=== PATIENT | male | born 1955 | race Caucasian/White ===

== ENCOUNTER 2024-12-16 20:26 | Observation (INO) | payer OTHER, SELFPAY ==
[2024-12-16 20:29] VITALS: BP 168/108; PULSE 106; RESP 16; TEMP 36.6; O2SAT 99; BMI 27.1
[2024-12-16 20:40] VITALS: BP 167/103; PULSE 101; RESP 19; O2SAT 97
[2024-12-16 21:30] LABS: Mucous, Urine 0 SEEN /hpf (<or=2+)
[2024-12-16 21:31] LABS: Color, Urine Straw (Yellow); Glucose, Dipstick Normal (Normal); Ketone-Dipstick Negative (Negative); Leukocyte Esterase-Dipstick 25 /ul (Negative); Nitrite-Dipstick Negative (Negative); Occult Blood-Urine 150 /ul (Negative); Protein-Dipstick 30 mg/dl (Negative); Specific Gravity, Urine 1.005 (1.002-1.030); Urine Bilirubin Dipstick Negative (Negative); Urine Clarity Clear (Clear); Urine Urobilinogen Normal (Normal); Urine pH 6.5 (5.0 - 8.0)
[2024-12-16 21:35] LABS: Absolute Lymphocyte Count 2.45 X10^3/uL (0.83-4.51); Absolute Neutrophil Count 9.3 X10^3/uL (2.0-7.7); Basophil# 0.05 X10^3/uL; Basophil% 0.4 % (0-1); Eosinophil# 0.44 X10^3/uL; Eosinophils% 3.2 % (0-5); Hematocrit 40.9 % (40-54); Hemoglobin 14.2 g/dL (13.0-16.5); Lymphocyte # 2.45 X10^3/ul (0.83-4.51); Lymphocyte % 17.6 % (19-41); Mean Corp Hgb Conc 34.7 g/dL (32-36); Mean Corpuscular Hgb 30.1 pg (27.0-32.0); Mean Corpuscular Volume 86.7 fL (80-94); Mean Platelet Vol. 8.3 fl (6.2-12.0); Monocyte# 1.63 X10^3/uL; Monocyte% 11.7 % (0-10); NRBC Flagged by Analyzer 0 % (0-5); Neutrophil # 9.28 X10^3/uL (2.7-7.7); Neutrophil % 66.7 % (47-70); POSITIVE DIFFERENTIAL YES; Platelet Count 464 K/mm3 (150-450); RBC Distribution Width CV 11.8 % (11.6-14.6); RBC Distribution Width SD 37.3 fl (35.1-43.9); Red Blood Count 4.72 M/mm3 (4.6-6.2); White Blood Count 13.9 K/mm3 (4.4-11.0)
[2024-12-16 21:45] LABS: Differential Indicated SCAN CRITERIA MET
[2024-12-16 22:14] LABS: ALB/GLOB Ratio 1.1 RATIO (0.9-2.4); AST(SGOT) 17 U/L (<=37); Alanine Aminotransfer ALT/SGPT 34 U/L (<=46); Albumin, Serum 3.8 g/dL (3.4-4.8); Alkaline Phosphatase 48 U/L (40-129); Anion Gap 13 (5-15); BUN 13 mg/dL (4-19); Calcium,Total 8.7 mg/dL (7.6-11.0); Carbon Dioxide 25.1 mmol/L (21.0-32.0); Chloride 99 mmol/L (98-108); Creatinine, Serum 0.74 mg/dL (0.70-1.20); EST Glomerular Filtration Rate 99 (>60); Estimated Creatinine Clearance 82.63 ml/min (50-250); Globulin 3.5 g/dL (2.2-4.2); Glucose 105 mg/dL (70-99); Lipase 25 U/L (13-75); Potassium 3.8 mmol/L (3.3-5.1); Protein, Total 7.2 g/dL (5.9-8.4); Sodium Level 137 mmol/L (133-145); Total Bilirubin 0.49 mg/dL (0.00-1.30)
--- NOTE | 2024-12-16 22:15 | CT_ITS ---
PROCEDURE: CT of the abdomen/pelvis with IV contrast. 12/16/2024 REASON FOR EXAM: UPPER ABDOMINAL PAIN TECHNIQUE: After the administration of 96 cc Isovue 370 IV contrast, contiguous axial CT images were obtained through the abdomen/pelvis. Sagittal and coronal reformats were created. One or more dose reduction techniques were used (e.g., Automated exposure control, adjustment of the mA and/or kV according to patient size, use of iterative reconstruction technique. RADIATION DOSE SUMMARY: DLP: 1143.60 mGycm COMPARISON: Abdominal ultrasound from the same day COMPARISON: Abdominal ultrasound from the same day FINDINGS: [id number] degenerative changes in the spine. Moderate degenerative changes in the hip joints. Heart is not enlarged. No sizable pericardial effusion. Mild wall thickening of the distal esophagus. Minimal dependent atelectasis in the lower lobes. Abdominal aorta normal in caliber. No large abdominal wall defect. There is a tiny fat containing umbilical hernia. Patchy wall thickening of the stomach may be due to lack of distention versus peristalsis. There are calcified gallstones near the neck. Pericholecystic inflammatory changes are present. No gross dilation of the biliary tree. Portal vein is patent. Diffuse low attenuation of the liver, without discrete parenchymal lesion. Probable small area of focal fatty sparing near the gallbladder fossa. The adrenal glands, spleen, and pancreas show no specific abnormality. The kidneys are symmetric in size and enhancement. No solid renal mass or obstructive uropathy. No abnormally dilated bowel segments or free intraperitoneal air. Scattered patchy wall thickening of the colon may be due to lack of distention versus peristalsis or chronic diverticular disease. Moderate stool in the colon. Normal appendix. No abdominal/pelvic adenopathy or ascites. There is asymmetric left moderate bladder wall thickening. There is some haziness in the central and left central aspect of the pelvis, extending to the perirectal fat. CT/Abdomen/Pelvis W IV Cont ONLY IMPRESSION: Calcified gallstones with gallbladder wall thickening and pericholecystic infla mmatory changes, concerning for acute cholecystitis. No gross dilation of the biliary tree. There is moderate asymmetric wall thickening of the left side of the urinary bl adder. There is some haziness in the central and left central pelvis, extending to the perirectal fat. This could be due to asy mmetric cystitis with bladder malignancy not excluded. Recommend further evaluation with cystoscopy. Diffuse fatty metamorphosis of the liver. Probable focal fatty sparing near th e gallbladder fossa. Tiny fat containing umbilical hernia. Mild wall thickening of the distal esophagus. This could be due to a tiny hiat al hernia or reflux. This could be better evaluated with upper endoscopy to exclude the possibility of distal esophageal malignancy. Normal appendix. Reading Location: [facility]
--- NOTE | 2024-12-16 22:15 | ED.VIS.GI ---
HPI HPI - GI History of Present Illness Chief Complaint: Abd Pain Informant: patient, spouse/S.O. and family Narrative Narrative: 68-year-old Roman Catholic male presenting to the emergency room with epigastric pain. Patient states that for the past several days he has been experiencing pain when he eats. Described as a burning in his upper abdomen lower chest. Does not radiate to his back. He notes that he has been constipated for the past few days has been taking medicine for that. He has been taking ivermectin intermittently for months because he believes that he has a parasite infection. states that he has been complaining that he is feeling heavy in his abdomen. No reported fevers or vomiting. He takes many different herbal medications. He does not want any surgery. He states that the only reason he is here is because his family is making him be here. PFSH PFSH Medical History no medical history Allergy/AdvReac Type Severity Reaction Status Date / Time No Known Allergies Allergy Verified 12/16/24 20:27 Social History Smoking Status: Never smoker ROS ROS ED Constitutional Constitutional ED: Denies chills or weight loss Eyes Eyes: Denies change in vision or diplopia ENT ENT ED: Denies ear pain, rhinorrhea or sore throat Cardiovascular Cardiovascular: Reports chest pain; Denies orthopnea, palpitations or racing heartbeat Respiratory/Chest Respiratory/Chest: Denies cough, dyspnea or orthopnea Gastrointestinal Gastrointestinal: Reports abdominal pain and constipation; Denies diarrhea, nausea or vomiting Genitourinary Genitourinary ED: Denies dysuria, hematuria or urinary frequency Musculoskeletal Musculoskeletal: Denies arthralgias or myalgias Integumentary Denies abscess or rash Neurologic Neurologic: Denies headache(s) or weakness Psychiatric Psychiatric: Denies anxiety, depression, suicidal ideation or suicidal thoughts Endocrine Endocrinology: Denies polydipsia, polyphagia or polyuria Allergic/Immunologic Allergic/Immunologic ED: Denies mouth swelling, tongue swelling or urticaria EXAM Physical Exam Const Vital Signs: 12/16/24 20:29 12/16/24 20:40 12/16/24 22:27 Temperature 97.9 F Temperature Source Temporal Pulse Rate 106 H 101 H 75 Respiratory Rate 16 19 H Blood Pressure 168/108 H 167/103 H 143/94 H Blood Pressure Mean 128 124 110 Pulse Ox 99 97 100 Oxygen Delivery Method Room Air Room Air Positive well nourished and well developed General Appearance ED: well developed and NAD HEENT Reports normocephalic, head/scalp atraumatic and moist mucous membranes Eyes PERRL and EOMs intact bilaterally Neck no lymphadenopathy, supple and no JVD Resp normal respiratory effort and clear to auscultation bilaterally Cardio regular rate, regular rhythm and no murmurs GI GI Narrative: Patient has involuntary guarding in the upper abdomen but he tells me it does not hurt. Inspection: Negative for abdominal distention Auscultation: normoactive bowel sounds Palpation: soft Back/Spine no CVA tenderness and normal ROM Extremity normal to inspection General Extremety ED: Negative for edema General Extremity: Negative for edema Neuro oriented x3 and CN's II-XII intact bilaterally Sensorium / Orientation: alert Motor Exam: strength 5/5 throughout Psych mental status grossly normal Mood & Affect: Negative for depressed or tearful Skin no rashes or lesions noted and no wounds MDM MDM MDM Narrative Medical decision making narrative: Differential diagnosis includes gallbladder disease pancreatitis GERD peptic ulcer disease esophagitis acute coronary syndrome EKG shows a normal sinus rhythm ventricular rate of 92 bpm. Troponin is 15. Basic blood work shows a white count of 13.9. Normal LFTs and lipase. Urinalysis shows 10-25 white blood cells 1+ bacteria negative nitrates. He is asymptomatic from a urinary standpoint is to be sent for culture. CT abdomen pelvis demonstrates cholelithiasis and an inflammation suggestive of acute cholecystitis. Please see radiologist read for full details formal gallbladder ultrasound was obtained. History & Record Review Discussion w/independent historian: Patient and Family Lab Data Attestation: I reviewed the patient's lab results. Labs: Laboratory Results - last 24 hr 12/16/24 12/16/24 20:55 21:30 WBC 13.9 H RBC 4.72 Hgb 14.2 Hct 40.9 MCV 86.7 MCH 30.1 MCHC 34.7 RDW Std Deviation 37.3 RDW Coeff of Maria E 11.8 Plt Count 464 H MPV 8.3 Immature Gran % (Auto) 0.400 Neut % (Auto) 66.7 Lymph % (Auto) 17.6 L [place] % (Auto) 11.7 H Eos % (Auto) 3.2 Baso % (Auto) 0.4 Absolute Neuts (auto) 9.3 H Absolute Lymphs (auto) 2.45 Nucleated RBC % 0 Differential Comment SCANNED Diff Path Review May foll Platelet Estimate SLT INC RBC Morphology NORM C+C Sodium 137 Potassium 3.8 Chloride 99 Carbon Dioxide 25.1 Anion Gap 13 BUN 13 Creatinine 0.74 Estim Creat Clear Calc 82.63 Est GFR (MDRD) Non-Af 99 BUN/Creatinine Ratio 17.0 Glucose 105 H Calcium 8.7 Total Bilirubin 0.49 AST 17 ALT 34 Alkaline Phosphatase 48 Troponin T High Sens 15 Total Protein 7.2 Albumin 3.8 Globulin 3.5 Albumin/Globulin Ratio 1.1 Lipase 25 Urine Color Straw Urine Clarity Clear Urine pH 6.5 Ur Specific [place] 1.005 Urine Protein 30 H Urine Glucose (UA) Normal Urine Ketones Negative Urine Occult Blood 150 H Urine Nitrite Negative Urine Bilirubin Negative Urine Urobilinogen Normal Ur Leukocyte Esterase 25 H Urine RBC 0-5 SEEN Urine WBC 10-25 SEEN Ur Squamous Epith Cells 0-5 SEEN Urine Bacteria 1+ Urine Mucus 0 SEEN EKG Initial EKG: Attestation: I personally reviewed and interpreted this EKG as follows: Comments: Normal sinus rhythm ventricular rate of 92 bpm Discharge Plan Triage Chief Complaint: Abd Pain ED Provider: Corby Hooker Dx/Rx/DC Orders Primary Care Provider: Care Physician,No Primary Referrals: NOT,DEFINED [Non-Staff] - Print Language: Citizen [place]
--- NOTE | 2024-12-16 22:17 | EKG12_ITS ---
Test Reason : DYSRHYTHMIA Blood Pressure : */* mmHG Vent. Rate : 92 BPM Atrial Rate : 92 BPM P-R Int : 192 ms QRS Dur : 72 ms QT Int : 338 ms P-R-T Axes : -1 27 16 degrees QTcB Int : 417 ms Normal sinus rhythm Normal ECG Confirmed by CRISTO HICKMAN, MATEO ([id number]), index editor TARA TRAYLOR ([id number]) on 12/17/2024 8:21:05 AM Referred By: Confirmed By: MATEO LEMONS MD
[2024-12-16 22:27] VITALS: BP 143/94; PULSE 75; O2SAT 100
--- NOTE | 2024-12-16 22:35 | US_ITS ---
PROCEDURE: Abdominal ultrasound. REASON FOR EXAM: Abdominal pain. Gallstones COMPARISON: Abdominal/pelvic CT 12/16/2024 FINDINGS: Visualized portions of the pancreas are unremarkable. No abdominal ascites is demonstrated. Segmentally visualized portions of the liver demonstrate coarse echotexture. No discrete liver parenchymal lesion. Some portions of the liver are not well evaluated. A few layering calcified gallstones are present. Tiny amount of pericholecystic fluid or edema. Gallbladder wall thickness 4 mm. The common duct measures 5 mm. Negative sonographic Tolliver's sign reported. The right kidney is 11.4 cm in length, unremarkable. US/Gallbladder IMPRESSION: Cholelithiasis. Mild gallbladder wall thickening at 4 mm and a tiny amount of pericholecystic fluid or edema. The findings could be suggestive of early acute cholecystitis, although a negative sonograph ic Tolliver's sign is reported. If there is clinical concern for acute cholecystitis, further evaluation with a nuclear med icine hepatobiliary scan may be considered. The common duct is within normal limits at 5 mm. Coarse liver echotexture, suggesting fatty metamorphosis. No discrete liver le rosaura. The remainder of the examination is unremarkable. Reading Location: [facility]
[2024-12-16 22:40] LABS: Bacteria 1+ /hpf (None Seen); Red Blood Cells-Urine 0-5 SEEN /hpf (0-5); Squamous Epithelial Cells - UA 0-5 SEEN /hpf (0-5); White Blood Cells 10-25 SEEN /hpf (0-5)
[2024-12-16 22:44] LABS: Troponin T High Sensitivity 15 ng/L (<=22)
--- NOTE | 2024-12-16 23:02 | ED.RN ---
no old ekg
[2024-12-16 23:19] LABS: Differential Comment SCANNED
[2024-12-16 23:20] LABS: Pathologist Review May foll; Platelet Estimate SLT INC (ADEQ); Red Cell Morphology NORM C+C NORMAL (NORM C&C)
[2024-12-17] VITALS (16 sets, daily range): BP systolic 125–160; BP diastolic 68–105; PULSE 60–94; RESP 12–20; TEMP 36.3–36.7; O2SAT 92–99; BMI 25.0
[2024-12-17 00:25] LABS: Troponin T High Sens 2 HR 16 ng/L (<=22)
[2024-12-17] MEDS: Piperacil/Tazobactam 3.375 GM in 0.9% Normal Saline (50mL MB+) 50 ML IV ×3 (01:37→13:15)
[2024-12-17] MEDS: 0.9% Normal Saline (1000mL) 1,000 ML 120 ML IV ×3 (03:19→17:16)
[2024-12-17] MEDS: Pantoprazole Sodium 40 MG in 0.9% Normal Saline (100mL MB+) 100 ML 330 MG IV (03:32)
[2024-12-17 07:16] LABS: Absolute Lymphocyte Count 2.58 X10^3/uL (0.83-4.51); Absolute Neutrophil Count 6.5 X10^3/uL (2.0-7.7); Basophil# 0.06 X10^3/uL; Basophil% 0.5 % (0-1); Eosinophil# 0.61 X10^3/uL; Eosinophils% 5.4 % (0-5); Hematocrit 38.9 % (40-54); Hemoglobin 13.6 g/dL (13.0-16.5); Lymphocyte # 2.58 X10^3/ul (0.83-4.51); Mean Corpuscular Hgb 30.4 pg (27.0-32.0); Mean Corpuscular Volume 86.8 fL (80-94); Mean Platelet Vol. 8.6 fl (6.2-12.0); Monocyte# 1.42 X10^3/uL; Monocyte% 12.7 % (0-10); NRBC Flagged by Analyzer 0 % (0-5); Neutrophil % 58.1 % (47-70); Platelet Count 463 K/mm3 (150-450); RBC Distribution Width CV 11.9 % (11.6-14.6); RBC Distribution Width SD 37.8 fl (35.1-43.9); Red Blood Count 4.48 M/mm3 (4.6-6.2); White Blood Count 11.2 K/mm3 (4.4-11.0)
--- NOTE | 2024-12-17 08:00 | GALL_PTH ---
PATIENT: MACK RAMOS LOC: U U#:[id number] AGE/SX: 68/M ROOM: [facility] RE12/17/[address]: Dr. Debra Morrow MD : 1955 BED: 1 DIS: 12/17/2024 SPEC #: [id number] RECD: 12/18/24 09:17 STATUS: BERENICE ROYCE #: [id number] YAMILEX: 12/17/24 08:[address]: Debra Morrow DEPT: SURGICAL PATHOLOGY RECD BY: Emmanuel Sellers ENTERED: 12/18/24 09:17 SP TYPE: MAG STOVALL DR: No Primary Care Phys Tissues: A - Gallbladder, NOS Procedures: Surgery Specimen Level III HEADER OPERATION: Laparoscopic, cholecystectomy with IOC PRE-OP DIAGNOSIS: Acute cholecystitis TISSUE SUBMITTED: A- Gallbladder MICROSCOPIC DIAGNOSIS Gallbladder, cholecystectomy: Acute transmural cholecystitis with focal gangrenous necrosisCholelithiasisMonique Alexis MD, 12/26/2024 MICROSCOPIC DESCRIPTION Slides are reviewed. GROSS DESCRIPTION A. Received in fixative is one container labeled with the patient's name and designated Gallbladder. The specimen consists of one gallbladder measuring 6.5 x 3.7 x 3cm. The gallbladder is very ragged and appears to have openings on the hepatic bed. One of the ragged openings measures 1 x 0.2cm, another opening is larger measuring 3 x 1.5cm. The presumed hepatic bed is marked in black ink. There appears to be no gallstones present. The mucosal surface is very ragged and hemorrhagic. The gallbladder wall appears thickened. Senior Hardware Design Engineer sections are submitted in three cassettes. 12/18/2024 CPT:33830, TC:2
[2024-12-17 08:08] LABS: AST(SGOT) 19 U/L (<=37); Alanine Aminotransfer ALT/SGPT 27 U/L (<=46); Albumin, Serum 3.4 g/dL (3.4-4.8); Alkaline Phosphatase 44 U/L (40-129); Anion Gap 12 (5-15); BUN 12 mg/dL (4-19); BUN/Creat Ratio 15.8 RATIO (10-20); Bilirubin, Direct 0.37 mg/dL (0.00-0.30); Calcium,Total 8.3 mg/dL (7.6-11.0); Carbon Dioxide 23.2 mmol/L (21.0-32.0); Chloride 103 mmol/L (98-108); Creatinine, Serum 0.75 mg/dL (0.70-1.20); EST Glomerular Filtration Rate 98 (>60); Estimated Creatinine Clearance 81.48 ml/min (50-250); Globulin 3.2 g/dL (2.2-4.2); Glucose 105 mg/dL (70-99); Potassium 3.7 mmol/L (3.3-5.1); Protein, Total 6.6 g/dL (5.9-8.4); Sodium Level 138 mmol/L (133-145); Total Bilirubin 0.84 mg/dL (0.00-1.30)
--- NOTE | 2024-12-17 10:01 | PCM.HP.STD ---
HPI - General General Date of Admission: 12/17/24 Date of Service: 12/17/24 Chief Complaint: Right upper quadrant pain HPI Narrative MACK RAMOS, is a 69 M who presents with concerns of right upper quadrant pain. Patient notes his most recent episode of right upper quadrant pain/burning pain occurred last following a meal at his brothers house. Patient notes he took charcoal for the burning which resolved the sensation. Patient states his family talked him into coming to the ED to be checked out. Patient notes he has been taking ivermectin for a diagnosis of parasites. He notes he is being followed by Dr. Upton. Patient states for approximately 2 months, he has been having these issues with right upper quadrant pain after eating. He denies any nausea, vomiting associated with the pain. He denies having any cardiac or pulmonary concerns. He denies denies having anesthesia previously. He denies an abdominal surgical history. He is taking several holistic medications. CT scan of the ab/pel demonstrated gallstones with gallbladder wall thickening and pericholecystic inflammatory changes, concerning acute cholecystitis. RUQ u/s demonstrated cholelithiasis with mild gallbladder wall thickening with tiny amount of pericholecystic fluid. Findings suggested acute cholecystitis. WBC 11.2, Hgb 13.6, Hct 38.9, Plt 463. Liver enzymes direct bilirubin is slightly elevated. [facility] Medical History no medical history Home Medications ?Medication ?Instructions ?Recorded ?Last Taken ?Type NK 12/17/24 Unknown History Allergy/AdvReac Type Severity Reaction Status Date / Time No Known Allergies Allergy Verified 12/16/24 20:27 Social History Smoking Status: Never smoker ROS Constitutional Constitutional: Reports systems reviewed and no addt'l complaints, except as documented Eyes Eyes: Reports systems reviewed and no addt'l complaints, except as documented ENT HEENT: Reports systems reviewed and no addt'l complaints, except as documented Cardiovascular Cardiovascular: Reports systems reviewed and no addt'l complaints, except as documented Respiratory/Chest Respiratory/Chest: Reports systems reviewed and no addt'l complaints, except as documented Gastrointestinal Gastrointestinal: Reports systems reviewed and no addt'l complaints, except as documented Genitourinary Genitourinary: Reports systems reviewed and no addt'l complaints, except as documented Musculoskeletal Musculoskeletal: Reports systems reviewed and no addt'l complaints, except as documented Integumentary Integumentary: Reports systems reviewed and no addt'l complaints, except as documented Neurologic Neurologic: Reports systems reviewed and no addt'l complaints, except as documented Psychiatric Psychiatric: Reports systems reviewed and no addt'l complaints, except as documented Endocrine Endocrinology: Reports systems reviewed and no addt'l complaints, except as documented Hematologic/Lymphatic Hematologic/Lymphatic: Reports systems reviewed and no addt'l complaints, except as documented Allergic/Immunologic Allergic/Immunologic: Reports systems reviewed and no addt'l complaints, except as documented Vital Signs Vital Signs Vital Signs: 12/16/24 20:29 12/16/24 20:40 12/16/24 22:27 Temperature 97.9 F Temperature Source Temporal Pulse Rate 106 H 101 H 75 Pulse Strength Respiratory Rate 16 19 H Respiratory Effort Respiratory Depth Respiratory Pattern Blood Pressure 168/108 H 167/103 H 143/94 H Blood Pressure Mean 128 124 110 Blood Pressure Source Blood Pressure Position Blood Pressure Location Pulse Ox 99 97 100 Oxygen Delivery Method Room Air Room Air 12/17/24 00:00 12/17/24 02:00 12/17/24 02:31 Temperature 97.8 F 97.8 F Temperature Source Oral Pulse Rate 74 63 63 Pulse Strength Respiratory Rate 16 18 18 Respiratory Effort Respiratory Depth Respiratory Pattern Blood Pressure 144/86 H 141/105 H 141/105 H Blood Pressure Mean 105 117 117 Blood Pressure Source Blood Pressure Position Blood Pressure Location Pulse Ox 99 95 95 Oxygen Delivery Method Room Air 12/17/24 03:00 12/17/24 03:30 12/17/24 07:30 Temperature 97.9 F Temperature Source Oral Pulse Rate 77 Pulse Strength Normal (2+) Respiratory Rate 16 Respiratory Effort Normal Respiratory Depth Normal Respiratory Pattern Normal Blood Pressure 129/68 H Blood Pressure Mean 88 Blood Pressure Source Monitor Blood Pressure Position Semi-Fowlers Blood Pressure Location Right Arm Pulse Ox 95 Oxygen Delivery Method Room Air Room Air 12/17/24 07:52 12/17/24 07:55 Temperature 97.9 F Temperature Source Temporal Pulse Rate 77 Pulse Strength Respiratory Rate 18 Respiratory Effort Normal Respiratory Depth Normal Respiratory Pattern Normal Blood Pressure 125/84 H Blood Pressure Mean 97 Blood Pressure Source Monitor Blood Pressure Position Semi-Fowlers Blood Pressure Location Right Arm Pulse Ox 97 Oxygen Delivery Method Room Air Room Air Weight Weight: 159 lb 9.835 oz Body Mass Index (BMI) 25.0 Physical Exam Const alert, oriented x3 and no apparent distress HEENT normocephalic and head/scalp atraumatic Eyes PERRL Neck full ROM Chest inspection of chest normal Resp normal respiratory effort and clear to auscultation bilaterally Cardio regular rate and regular rhythm GI normal to inspection, nondistended, normoactive bowel sounds no CVA tenderness Back/Spine no CVA tenderness Extremity normal to inspection Skin no rashes or lesions noted Neuro no focal motor deficits and no sensory deficits noted Psych mental status grossly normal and thought process normal Results Lab / Micro Data 12/17/24 06:31 12/17/24 06:31 Labs: Laboratory Results - last 24 hr 12/16/24 20:55: Urine Color Straw, Urine Clarity Clear, Urine pH 6.5, Ur Specific [place] 1.005, Urine Protein 30 H, Urine Glucose (UA) Normal, Urine Ketones Negative, Urine Occult Blood 150 H, Urine Nitrite Negative, Urine Bilirubin Negative, Urine Urobilinogen Normal, Ur Leukocyte Esterase 25 H, Urine RBC 0-5 SEEN, Urine WBC 10-25 SEEN, Ur Squamous Epith Cells 0-5 SEEN, Urine Bacteria 1+, Urine Mucus 0 SEEN 12/16/24 21:30: WBC 13.9 H, RBC 4.72, Hgb 14.2, Hct 40.9, MCV 86.7, MCH 30.1, MCHC 34.7, RDW Std Deviation 37.3, RDW Coeff of Maria E 11.8, Plt Count 464 H, MPV 8.3, Immature Gran % (Auto) 0.400, Neut % (Auto) 66.7, Lymph % (Auto) 17.6 L, [place] % (Auto) 11.7 H, Eos % (Auto) 3.2, Baso % (Auto) 0.4, Absolute Neuts (auto) 9.3 H, Absolute Lymphs (auto) 2.45, Nucleated RBC % 0, Differential Comment SCANNED, Diff Path Review May jovanna, Platelet Estimate SLT INC, RBC Morphology NORM C+C, Sodium 137, Potassium 3.8, Chloride 99, Carbon Dioxide 25.1, Anion Gap 13, BUN 13, Creatinine 0.74, Estim Creat Clear Calc 82.63, Est GFR (MDRD) Non-Af 99, BUN/Creatinine Ratio 17.0, Glucose 105 H, Calcium 8.7, Total Bilirubin 0.49, AST 17, ALT 34, Alkaline Phosphatase 48, Troponin T High Sens 15, Total Protein 7.2, Albumin 3.8, Globulin 3.5, Albumin/Globulin Ratio 1.1, Lipase 25 12/17/24 00:00: Troponin T Hi Sens 2 Hr 16 12/17/24 06:31: WBC 11.2 H, RBC 4.48 L, Hgb 13.6, Hct 38.9 L, MCV 86.8, MCH 30.4, MCHC 35.0, RDW Std Deviation 37.8, RDW Coeff of Maria E 11.9, Plt Count 463 H, MPV 8.6, Immature Gran % (Auto) 0.300, Neut % (Auto) 58.1, Lymph % (Auto) 23.0, [place] % (Auto) 12.7 H, Eos % (Auto) 5.4 H, Baso % (Auto) 0.5, Absolute Neuts (auto) 6.5, Absolute Lymphs (auto) 2.58, Nucleated RBC % 0, Sodium 138, Potassium 3.7, Chloride 103, Carbon Dioxide 23.2, Anion Gap 12, BUN 12, Creatinine 0.75, Estim Creat Clear Calc 81.48, Est GFR (MDRD) Non-Af 98, BUN/Creatinine Ratio 15.8, Glucose 105 H, Calcium 8.3, Total Bilirubin 0.84, Direct Bilirubin 0.37 H, AST 19, ALT 27, Alkaline Phosphatase 44, Total Protein 6.6, Albumin 3.4, Globulin 3.2 Imaging Radiology Impression Abdomen/Pelvis CT 12/16/24 22:15 IMPRESSION: Calcified gallstones with gallbladder wall thickening and pericholecystic inflammatory changes, concerning for acute cholecystitis. No gross dilation of the biliary tree. There is moderate asymmetric wall thickening of the left side of the urinary bladder. There is some haziness in the central and left central pelvis, extending to the perirectal fat. This could be due to asymmetric cystitis with bladder malignancy not excluded. Recommend further evaluation with cystoscopy. Diffuse fatty metamorphosis of the liver. Probable focal fatty sparing near the gallbladder fossa. Tiny fat containing umbilical hernia. Mild wall thickening of the distal esophagus. This could be due to a tiny hiatal hernia or reflux. This could be better evaluated with upper endoscopy to exclude the possibility of distal esophageal malignancy. Normal appendix. Reading Location: [facility] Gallbladder Ultrasound 12/16/24 22:35 IMPRESSION: Cholelithiasis. Mild gallbladder wall thickening at 4 mm and a tiny amount of pericholecystic fluid or edema. The findings could be suggestive of early acute cholecystitis, although a negative sonographic Tolliver's sign is reported. If there is clinical concern for acute cholecystitis, further evaluation with a nuclear medicine hepatobiliary scan may be considered. The common duct is within normal limits at 5 mm. Coarse liver echotexture, suggesting fatty metamorphosis. No discrete liver lesion. The remainder of the examination is unremarkable. Reading Location: [facility] Assessment & Plan Assessment/Plan (1) Acute cholecystitis: PLAN: I am seeing this patient in conjunction with Dr. Leiva. She has independently evaluated this patient. CT scan of ab/pel and RUQ u/s demonstrate acute cholecystitis. Dr. Morrow will plan to perform a laparoscopic cholecystectomy with intraoperative cholangiogram. Procedure details, risks and benefits have been explained. Patient and his spouse have had the opportunity to ask and have questions answered. Patient verbally understands and agrees with the plan. Thank you for allowing us to participate in this patient's care. Charges/Coding Visit Charges OBSV E&M: 95803 Observ/hosp same date L2
--- NOTE | 2024-12-17 11:41 | PCM.PRE.AN2 ---
ASA Classification* ASA Classification ASA Classification: 2 (Patient has never seen a doctor. No known medical history. Seems to be okay, EKG shows NSR ) Assessment & Plan Anesthesia* Anesthesia Assessment Anesthesia Assessment: Discussed sedation and/or anesthesia options, risks, benefits, and alternatives with patient/parents/legal guardian/POA. Questions invited. The patient/parents/legal guardian/POA seems to understand and agrees to proceed with anesthesia plan. Reviewed the physical assessment, medical history, allergy history and patient home medications list prior to surgery/procedure/anesthetic and documented any changes. Performed airway and anesthesia risk assessments. Anesthesia Type Anesthesia Type: General History Source History Obtained from:: Patient and Chart Anesthesia Focused Assessment* Temperature: 97.9 F Pulse Rate: 77 Blood Pressure: 125/84 Respiratory Rate: 18 Pulse Ox: 94 Oxygen Delivery Method: Room Air Airway Assessment Mouth opens: >3 cm Mallampati Score: I Teeth Condition: Dentures and Upper Neck Range of motion (ROM): Full ROM Focused Labs Anesthesia Preop lab: CBC WBC 11.2 K/mm3 (4.4-11.0) H 12/17/24 06:31 12/17/24 RBC 4.48 M/mm3 (4.6-6.2) L 12/17/24 06:12/17/24 Hgb 13.6 g/dL (13.0-16.5) 12/17/24 06:31 12/17/24 Hct 38.9 % (40-54) L 12/17/24 06:31 12/17/24 Plt Count 463 K/mm3 (150-450) H 12/17/24 06:31 12/17/24 CHEMISTRY Potassium 3.7 mmol/L (3.3-5.1) 12/17/24 06:31 12/17/24 Sodium 138 mmol/L (133-145) 12/17/24 06:31 12/17/24 BUN 12 mg/dL (4-19) 12/17/24 06:31 12/17/24 Creatinine 0.75 mg/dL (0.70-1.20) 12/17/24 06:31 12/17/24 Glucose 105 mg/dL (70-99) H 12/17/24 06:31 12/17/24 COAG Pre-Assessment Diagnosis/Proposed Procedure Planned Operative Procedure(s): Cholecystectomy Anesthesia History Anesthesia History - registered route associate: Anesthesia History - registered route associate Hx Hospitalization Any Problems With Anesthesia No 12/17/24 07:59 Cholinesterase deficiency No 12/17/24 07:59 You/Your Family Experience No 12/17/24 07:59 fever (hyperthermia) with Relationship Recent Exposure to Contagious No 12/17/24 07:59 Disease Does patient have nerve No 12/17/24 07:59 stimulator Patient instructed to have No 12/17/24 07:59 device shut off --Does patient have Pacemaker No 12/17/24 07:57 or ICD? When Was Last Pacemaker Check QUESTION #4 FULL TEXT: You/Your Family Experience fever (hyperthermia) with Anesthesia Last Oral Intake Last Oral intake: Last Oral Intake NPO since 02:00 12/17/24 07:57 Meds taken in AM with sips of No 12/17/24 07:57 water? Meds patient instructed to take am of surgery PONV PONV - registered route associate: PONV - registered route associate Female HX of Motion Sickness HX of N/V After Surgery Non-Smoker Duration of Surgery greater than 60 minutes Number of Risk Factors PONV Score Height & Weight Height & Weight: Anesthesia: Height & Weight Height 5 ft 7 in 12/17/24 10:54 Weight: 72.4 kg 12/17/24 10:54 Body Mass Index (BMI) 25.0 12/17/24 07:57 Respiratory Assessment Respiratory Assessment - registered route associate: Respiratory Tract Infection Hx - registered route associate Hx Respiratory Tract Infection No 12/17/24 07:59 STOP Sleep Apnea STOP Sleep Apnea - registered route associate: STOP Sleep Apnea - registered route associate Hx Hypertension No 12/17/24 03:00 Hx Sleep Apnea No 12/17/24 03:00 CPAP BIPAP Do you snore loudly (louder No 12/17/24 03:00 than talking or can be heard Do you often feel tired/ No 12/17/24 03:00 fatigued/ sleepy during daytime? Has anyone observed you stop No 12/17/24 03:00 breathing during sleep? STOP Results Negative 12/17/24 03:00 QUESTION #5 FULL TEXT : Do you snore loudly (louder than talking or can be heard through closed doors)? Tobacco Use History Tobacco Use History - registered route associate: Tobacco Use History - registered route associate Tobacco Use Smoking Status Never smoker 12/17/24 03:00 Hx Tobacco Use No 12/17/24 03:00 Years Smoking Packs Smoked per Day Smoking Cessation Date was within the last 15 years Hx Smoking Cessation Date Hx Smoking Cessation Counseling Hematologic Medial History Hematologic Hx - registered route associate: Hematologic Medical Hx - sales order specialist Hx of Blood Transfusion No 12/17/24 03:00 Hx of Transfusion in last 3 No 12/17/24 03:00 Months Date of Last Transfusion (if within last 3 months) Ever experience any problems No 12/17/24 03:00 with transfusion(s)? Specify any problems Hx of Preganancy in last 3 N/A 12/17/24 03:00 Months Nurse Filling Out Transfusion RSMAILES 12/17/24 03:00 & Questions: Date: 12/17/24 12/17/24 03:00 Time: 03:41 12/17/24 03:00 Patient unable to answer at this time (ie. confused, unrespo /Reproduction History /Reproductive History - registered route associate: /Reproductive Hx- registered route associate Hx Now Gestational Age (in weeks): EDC: Hx Hx Para Hx Section SAB Active Medications Active Medications: Current Medications Generic Name Dose Route Start Last Admin Trade Name Freq PRN Reason Stop Dose Admin Acetaminophen 650 mg 12/17/24 03:03 Acetaminophen 325 Mg Tablet PO Q6H PRN PRN Pain Score 1-10 Sodium Chloride 1,000 mls @ 120 mls/hr 12/17/24 03:03 12/17/24 11:02 IV 120 mls/hr .Q8H20M JURGEN Administration Piperacillin Sod/Tazobactam 50 mls @ 12.5 mls/hr 12/17/24 06:00 12/17/24 10:09 Sod 3.375 gm/ Sodium Chloride IV Infused Q8 JURGEN Infusion Pantoprazole Sodium 40 mg/ 110 mls @ 330 mls/hr 12/17/24 03:03 12/17/24 03:55 Sodium Chloride IV Infused 2200 JURGEN Infusion Morphine Sulfate 2 - 4 mg 12/17/24 03:03 Morphine 2 Mg/Ml Syringe IV Q2H PRN PRN Pain Score 1-10 Morphine Sulfate 2 - 4 mg 12/17/24 03:07 Morphine 4 Mg/Ml Syringe IV Q2H PRN PRN Pain Score 1-10 Ondansetron HCl 4 mg 12/17/24 03:03 Ondansetron 4 Mg/2 Ml Vial IV Q8H PRN PRN NAUSEA Oxycodone HCl 5 - 10 mg 12/17/24 03:03 Oxycodone 5 Mg Tablet PO Q4H PRN PRN Pain Score 1-10 Sodium Chloride 10 - 40 ml 12/17/24 03:12 0.9% Saline Lock 10 Ml Syringe IV UD PRN SALINE FLUSH PFSH Medical History no medical history Home Medications ?Medication ?Instructions ?Recorded ?Last Taken ?Type NK 12/17/24 Unknown History Allergy/AdvReac Type Severity Reaction Status Date / Time No Known Allergies Allergy Verified 12/16/24 20:27 Social History Smoking Status: Never smoker Addt'l Information Additional Findings: MACK RAMOS, is a 69 M who presents with concerns of right upper quadrant pain. Patient notes his most recent episode of right upper quadrant pain/burning pain occurred last following a meal at his brothers house. Patient notes he took charcoal for the burning which resolved the sensation. Patient states his family talked him into coming to the ED to be checked out. Patient notes he has been taking ivermectin for a diagnosis of parasites. He notes he is being followed by Dr. Upton. Patient states for approximately 2 months, he has been having these issues with right upper quadrant pain after eating. He denies any nausea, vomiting associated with the pain. He denies having any cardiac or pulmonary concerns. He denies denies having anesthesia previously. He denies an abdominal surgical history. He is taking several holistic medications. CT scan of the ab/pel demonstrated gallstones with gallbladder wall thickening and pericholecystic inflammatory changes, concerning acute cholecystitis. RUQ u/s demonstrated cholelithiasis with mild gallbladder wall thickening with tiny amount of pericholecystic fluid. Findings suggested acute cholecystitis. WBC 11.2, Hgb 13.6, Hct 38.9, Plt 463. Liver enzymes direct bilirubin is slightly elevated. Review of Systems (Anesthesia) ROS Narrative System reviewed and no additional complaints, except as documented. Physical Exam Const alert, oriented x3 and average body habitus Resp normal respiratory effort, normal air movement and clear to auscultation bilaterally Cardio regular rate, regular rhythm, no murmurs and diaphoretic
--- NOTE | 2024-12-17 13:10 | RAD_ITS ---
PROCEDURE: CHOLANGIOGRAM/ O R,INITIAL; O.R. FLUORO FOR C-ARM REASON FOR EXAM: LAP JUAN WITH IOC; PAIN TECHNIQUE: Intraoperative fluoroscopy was performed for intraoperative cholangiogram following laparoscopic cholecystectomy. A single fluoroscopic image was obtained. COMPARISON: None. RAD/Cholangiogram/ O R,Initial IMPRESSION: Intraoperative fluoroscopy was performed for intraoperative cholangiogram follo wing laparoscopic cholecystectomy. A single fluoroscopic image was obtained. Reading Location: [id number]
--- NOTE | 2024-12-17 13:10 | RAD_ITS ---
PROCEDURE: CHOLANGIOGRAM/ O R,INITIAL; O.R. FLUORO FOR C-ARM REASON FOR EXAM: LAP JUAN WITH IOC; PAIN TECHNIQUE: Intraoperative fluoroscopy was performed for intraoperative cholangiogram following laparoscopic cholecystectomy. A single fluoroscopic image was obtained. COMPARISON: None. RAD/O.R. Fluoro for C-Arm IMPRESSION: Intraoperative fluoroscopy was performed for intraoperative cholangiogram follo wing laparoscopic cholecystectomy. A single fluoroscopic image was obtained. Reading Location: [id number]
--- NOTE | 2024-12-17 14:36 | PCM.OPRPT ---
Operative Report (Standard) Operative Information Date of Procedure: 12/17/24 Pre-Operative Diagnosis: Acute cholecystitis, umbilical hernia Post-Operative Diagnosis: Same Surgery/Procedure Performed: Laparoscopic cholecystectomy with cholangiograms, primary umbilical hernia repair marketing production coordinator: Yes Autobody Technician: Delvis Vu Tasks completed by under water assistant: Opening & closing and Retracting Type of Anesthesia: General/Supplemental RN Documented Start/Stop Times: Operation Date: 12/17/24 08:00 Case Time Into Pre-Op 12/17/24 11:23 Out of Pre-Op 12/17/24 12:40 Anesthesia Start 12/17/24 12:43 Into Room 12/17/24 12:43 Procedure Start 12/17/24 13:02 Procedure End 12/17/24 14:48 Anesthesia End 12/17/24 14:56 Out of Room 12/17/24 14:56 Into Recovery 12/17/24 15:02 Out of Recovery 12/17/24 16:22 Procedure Start Time: 13:02 Procedure Stop Time: 14:48 Select all DRAINS/GRAFTS/IMPLANTS that apply: None Special Medications: Zosyn 3.375 g IV every 8 hours for acute cholecystitis Estimated Blood Loss: 20 cc Specimen collected: Yes Description of specimen(s) removed: Gallbladder Description of surgery: Indications: this is a 69 year-old male who developed abdominal pain/nausea/vomiting and on workup was found to have acute cholecystitis, cholelithiasis, with a normal common bile duct. Laparoscopic cholecystectomy was elected. Description procedure: The patient was placed on operating table in supine position. A timeout was completed verifying correct patient, procedure, site, position and special equipment prior to beginning procedure. General Anesthesia was induced. The abdomen was prepped and draped in usual sterile fashion. An incision was made in curvilinear fashion below the umbilicus at the umbilical hernia. Stalk of the umbilicus was divided carefully with Metzenbaums. Entry into the abdomen through patient umbilical hernia. The peritoneum was elevated and incised. Entry into the peritoneum was confirmed visually and no bowel was noted in the vicinity of the incision. Vill[place] trocar was placed. The abdomen was insufflated with carbon dioxide to a pressure of 12-15 mmHg. Patient tolerated insufflation well. The laparoscope was then inserted and abdomen inspected. No injuries from initial trocar placement were noted. Additional trochars were then inserted in the following locations 5 mm trocar in the epigastrium and 2 more 5 mm trochars along the right costal margin. The abdomen was inspected no abnormalities were found. The table is placed in reverse Trendelenburg position with the right side up. The adhesions between the gallbladder and omentum divided carefully with electrocautery. The gallbladder was inflamed and required needle decompression to be able to retract the gallbladder. The dome of the gallbladder was grasped with atraumatic grasper passed through the lateral port and retracted over the dome of the liver. Infundibulum was then grasped with atraumatic grasper through the midclavicular port and retracted to the right lower quadrant. This maneuver exposed Calot's triangle. The peritoneum overlying the gallbladder infundibulum was then incised and cystic duct and artery identified and circumferentially dissected. Richey catheter was used for cholangiograms. The cholangiogram showed good filling of the common bile duct into the duodenum with no filling defects, good filling of the right and left bile ducts as well. The cystic duct and artery were then doubly clipped and divided close to the gallbladder. The gallbladder then dissected from its peritoneal attachments by electrocautery. Hemostasis was checked and the gallbladder and contained stones were removed using the endoscopic retrieval bag through the umbilical port. The gallbladder is passed off table as specimen. The gallbladder fossa was irrigated with saline and hemostasis obtained. There is no evidence of bleeding from the gallbladder fossa or cystic artery leakage of bile from the cystic duct stump. Secondary trochars removed under direct vision. No bleeding was noted the trocar sites. The laparoscope was withdrawn and umbilical trocar removed. The abdomen was allowed to collapse. The fascia of the 12 mm trocar was closed with a [id number] Nurolon suture. Skin of the umbilicus was sutured to the fascia with 3-0 Vicryl. Interrupted 3-0 Vicryl subdermal sutures were used to close the infraumbilical incision. The skin was closed with sutures of 4-0 Monocryl and Steri-Strips. The patient was extubated. The patient tolerated procedure well and was taken to the postanesthesia care unit in stable condition. Surgical Findings: See operative report Complications Complications: No
[2024-12-17] MEDS: Bupivacaine Mpf 0.5% 30 ML VIAL (14:37)
--- NOTE | 2024-12-17 14:47 | DCINST_ITS ---
Discharge Instructions Diet Discharge Diet: Light diet - advance as tolerated Activity Discharge Activity: May Not Drive (while taking narcotic pain medications.) May shower in (days): 5 (Keep umbilical dressing clean dry and intact for 5 days. Okay to tape off with a Ziploc bag to shower. Or lower shower and upper sponge bath.) Lifting Restrictions: no lifting >20 lbs x 2 wks, no strenuous exercise for 4 wks Dressing / Incision Call your doctor if your incision/area has: Continuous Slow Oozing, Sudden Increased Bleeding, Increased Pain/ Swelling, Increased Redness, Foul Smelling Discharge and Swelling at the incision site Call your doctor if you observe: Fever of 101 or Higher Remove Dressing in: 5 days (After 5 days okay to remove surgical dressing. Place cotton ball or rolled up gauze in bellybutton and retape daily for 2 more days.) Cleanse incision/area with: Do not get Incision Wet (for 5 days) Additional Dressing/Incision Instructions:: Steri-Strips will fall off in 7 to 10 days, if they do not fall off okay to remove after 10 days. Follow Up Care Please Follow Up With: Debra Morrow MD When: Call the office for a follow-up appointment 2 weeks; after 5 PM and on the weekends call [phone] with any concerns. Test Results: Test results from this visit will be discussed in further detail at your follow- up appointment, if applicable. Discharge Plan Admission Admit Date/Time: 12/17/24 01:40 Attending Provider: Debra Morrow Primary Care Provider: Saji PhysicianMarcelina Primary Discharge Orders/Prescriptions Prescriptions: New oxycodone 5 mg capsule 5 mg PO Q6H PRN (Reason: pain) 3 Days Qty: 10 0RF Referrals / Follow Up: Care Physician,Marcelina Primary [Primary Care Provider] - NOT,DEFINED [Non-Staff] - Disposition Disposition (needs filled in before D/C Order can be placed): Home, Self Care
--- NOTE | 2024-12-17 15:10 | PCM.POST.ANE ---
Anesthesia: Postop Eval I Current Vital Signs Temperature: 98 F Pulse Rate: 80 Blood Pressure: 160/84 Respiratory Rate: 18 Pulse Ox: 94 Oxygen Delivery Method: Room Air Assessment Airway patent: Yes Spontaneous unlabored respirations: Yes Mental status: Asleep nausea: No Vomiting: No Anesthesia Complication: No Fluid Hydration Crystalloid volume administer (ml): 800 Total IV fluid infused: 800 Progress Note Anesthesia document: Postop Eval 1 completed: Yes
--- NOTE | 2024-12-17 15:22 | POSTOPAN2_ITS ---
Anesthesia Postop Eval I Sum Postop Eval Completion status Anesthesia document: Postop Eval 1 completed: Yes Anesthesia Postop Eval I Summary Anesthesia Postop Eval I Summary: Anesthesia Postop Eval I: Assessment Summary Airway patent Yes 12/17/24 15:11 HOT SAW OPERATOR.[email or web address] Spontaneous unlabored Yes 12/17/24 15:11 HOT SAW OPERATOR.SILVIA respirations Mental status Asleep 12/17/24 15:11 HOT SAW OPERATOR.SILVIA nausea No 12/17/24 15:11 HOT SAW OPERATOR.SILVIA Vomiting No 12/17/24 15:11 HOT SAW OPERATOR.SILVIA Anesthesia Postop Eval I: Fluid Summary Crystalloid volume administer 800 12/17/24 15:11 HOT SAW OPERATOR.SILVIA (ml) Colloids volume administered ( ml) Blood Product volume administered (ml) Total IV fluid infused 800 12/17/24 15:11 HOT SAW OPERATOR.SILVIA Anesthesia Postop Eval I: Summary Notes Anesthesia Complication No 12/17/24 15:11 HOT SAW OPERATOR.SILVIA Anesthesia Complication Comment: Post-operative progress note Anesthesia: Postop Eval II Evaluation Mental status: Awake Pain Level: 0 nausea: No Vomiting: No Complications Anesthesia Complication: No
--- NOTE | 2024-12-17 15:22 | PCM.POSTANE2 ---
Anesthesia Postop Eval I Sum Postop Eval Completion status Anesthesia document: Postop Eval 1 completed: Yes Anesthesia Postop Eval I Summary Anesthesia Postop Eval I Summary: Anesthesia Postop Eval I: Assessment Summary Airway patent Yes 12/17/24 15:11 BINDERY MANAGER.[email or web address] Spontaneous unlabored Yes 12/17/24 15:11 BINDERY MANAGER.SILVIA respirations Mental status Asleep 12/17/24 15:11 BINDERY MANAGER.SILVIA nausea No 12/17/24 15:11 BINDERY MANAGER.SILVIA Vomiting No 12/17/24 15:11 BINDERY MANAGER.SILVIA Anesthesia Postop Eval I: Fluid Summary Crystalloid volume administer 800 12/17/24 15:11 BINDERY MANAGER.SILVIA (ml) Colloids volume administered ( ml) Blood Product volume administered (ml) Total IV fluid infused 800 12/17/24 15:11 BINDERY MANAGER.SILVIA Anesthesia Postop Eval I: Summary Notes Anesthesia Complication No 12/17/24 15:11 BINDERY MANAGER.SILVIA Anesthesia Complication Comment: Post-operative progress note Anesthesia: Postop Eval II Evaluation Mental status: Awake Pain Level: 0 nausea: No Vomiting: No Complications Anesthesia Complication: No
[2024-12-17] MEDS: Ketorolac 30 MG/ML Syringe IV (16:03)
--- NOTE | 2024-12-17 17:10 | PHA.DC_ITS ---
Pharmacy [place] Med Reconciliation Pharmacy Service has performed discharge medication reconciliation for this patient. Unable to prevocational/rehabilitation counselor prior to discharge, medications reviewed. The patient's discharge medication list was reviewed for discrepancies and discrepancies were resolved. Medications at Discharge Home Medications oxycodone 5 mg capsule 5 mg PO Q6H PRN pain 3 days #10 caps 12/17/24
[2024-12-17] MEDS: oxyCODONE 5 MG Tablet PO (18:29)
--- NOTE | 2024-12-17 18:41 | NURSING ---
Pt ate dinner and denies nausea. Pt ambulated in the halls. Pt states he feels comfortable to go home with .
== END 2024-12-17 14:49 | disposition home or self-care (01) ==
LOC: ED 12-17 01:40 → PCU 12-17 02:53
PROVIDERS: Admitting Provider Surgery; Emergency Provider Emergency Medicine; Visit Provider Surgery
PROC: (CPT 47610; principal; 2024-12-17 07:40)
DX: K80.00 Calculus of gallbladder with acute cholecystitis without obstruction (principal); K82.A1 Gangrene of gallbladder in cholecystitis; K42.9 Umbilical hernia without obstruction or gangrene
CPT/HCPCS: 47563; 00790; 36415; 74177; 74300; 76000; 76705; 80048; 80053; 80076; 81001; 83690; 84484; 85025; 87086; 88304; 93005; 94668; 96361; 96365; 96366; 96375; 97802; 99221; 99284; Q9967; A4216; G0378; J2405